=== PATIENT | female | born 1990 | race Caucasian/White ===

== ENCOUNTER 2019-01-26 23:15 | Emergency (ER) | payer OTHER ==
[2019-01-26] MEDS ORDERED: SULFAMETHOXAZOLE/TRIMETHOPRIM 800MG/160MG D.S. TABLET PO ONE (23:46)
[2019-01-26 23:48] VITALS: BP 108/78; PULSE 110; TEMP 97.5; BMI 27.4
--- NOTE | 2019-01-26 23:48 | PDOC ---
History of Present Illness - General Chief Complaint: Abscess Boil Stated Complaint: PILONIDAL CYST Time Seen by Provider: 01/26/19 23:43 History Source: Patient Exam Limitations: No Limitations - History of Present Illness Initial Comments: 01/26/19 23:44 This is a 28-year-old female who comes in complaining of a pilonidal cyst. Patient has history of similar cyst 10 years ago. Patient is complaining that there is some pain in the area however there is been no drainage from the area. Patient denies any fevers or chills or any other complaints. Allergies: as per nursing notes Past Medical History: none Social history: Lives with family. No smoking. No alcohol. No illicit drugs. Surgical history: None General: No fevers or chills, no weakness, no weight loss HEENT: No change in vision. No sore throat,. No ear pain CardioVascular: no chest discomfort. No shortness of breath Respiratory:No cough, or wheezing. Gastrointestinal: no nausea, vomiting, diarrhea or constipation, No rectal bleeding Genitourinary: No dysuria, hematuria, or frequency Musculoskeletal: No joint or muscle pain or swelling Neurologic: No headache, vertigo, dizziness or loss of consciousness Psychiatric: nor depression Skin: No rashes or easy bruising, pilonidal cyst as per HPI Endocrine: no increased thirst or abnormal weight change Allergic: no skin or latex allergy All other systems reviewed and normal GENERAL: The patient is awake, alert, and fully oriented, in no acute distress. HEAD: Normal with no signs of trauma. EYES: Pupils equal, round and reactive to light, extraocular movements intact, sclera anicteric, conjunctiva clear. EXTREMITIES:atraumatic, Normal range of motion, no edema. Buttocks: There is no palpable collection however there is an area of some mild erythema with slight increase in warmth. There is some associated tenderness on palpation NEUROLOGICAL: Normal speech, normal gait. PSYCH: Normal mood, normal affect. SKIN: Warm, Dry, normal turgor, no rashes or lesions noted. Assessment and plan: This is 28-year-old female who comes in complaining of pain in an area of the pilonidal cyst. On my exam there is no palpable collection that would be drainable at this time. Discussed with patient her options recommended that patient start hot soaks to the area 3 times a day and I will start her on antibiotics in hopes that we can prevent formation of an abscess. Past History - Past Medical History Allergies/Adverse Reactions: Allergies Allergy/AdvReac Type Severity Reaction Status Date / Time No Known Allergies Allergy Verified 01/26/19 23:43 Home Medications: Ambulatory Orders Norgestimate-Ethinyl Estradiol [Ortho Tri-Cyclen] 1 each PO DAILY 08/13/15 Sulfamethoxazole/Trimethoprim [Bactrim DS -] 1 tab PO BID #14 tablet 01/26/19 - Psycho Social/Smoking Cessation Hx Smoking History: Never smoked Have you smoked in the past 12 months: No Hx Alcohol Use: No Drug/Substance Use Hx: No Substance Use Type: None Discharge - Discharge Information Problems reviewed: Yes Clinical Impression/Diagnosis: Pilonidal cyst without abscess Condition: Good Disposition: HOME - Admission No - Follow up/Referral - Patient Discharge Instructions Additional Instructions: Do hot soaks to the area as discussed by the doctor. Take Bactrim 1 tablet twice a day for 7 days. Hopefully this will prevent formation of an abscess that will need to be drained. However at this point there is no drainable abscess. Return to the emergency department immediately with ANY new, persistent or worsening symptoms. Continue any medications as previously prescribed by your physician. You should follow up with your primary doctor as soon as possible regarding today's emergency department visit. . Please make sure your doctor reviews the results of your emergency evaluation. Thank you for coming to the Emergency Department today for your care. It was a pleasure to see you today. Please note that your evaluation is INCOMPLETE until you follow-up with your doctor. - Post Discharge Activity
[2019-01-26] MEDS ORDERED: SULFAMETHOXAZOLE/TRIMETHOPRIM 800MG/160MG D.S. TABLET ONE (23:49)
== END 2019-01-26 23:54 | disposition home or self-care (01) ==
LOC: FER 23:15
DX: L05.91 Pilonidal cyst without abscess (principal)
CPT/HCPCS: 99281-25

== ENCOUNTER 2019-01-31 19:26 | Emergency (ER) | payer OTHER ==
[2019-01-31 19:32] VITALS: BP 113/73; PULSE 75; TEMP 97.9; BMI 28.3
--- NOTE | 2019-01-31 21:16 | PDOC ---
Documentation entered by Brittany Guardado SCRIBE, acting as scribe for Charlotte Estes MD. Charlotte Estes MD: This documentation has been prepared by the Geo ward Maria, SCRIBE, under my direction and personally reviewed by me in its entirety. I confirm that the documentation accurately reflects all work, treatment, procedures, and medical decision making performed by me. History of Present Illness - General Chief Complaint: Pain, Acute Stated Complaint: CYST ON TAILBONE Time Seen by Provider: 01/31/19 19:29 History Source: Patient Exam Limitations: No Limitations - History of Present Illness Initial Comments: 01/31/19 20:29 Patient is a 28 year old female with no significant past medical history who presents to the ED complaining of increased swelling and pain of cyst on her tailbone.. Patient was seen here in the ER on January 26 with painful swelling in the area. Abscess was not yet ready for drainage and patient was started on Bactrim course (she is on last day of the antibiotic course). Patient also continue to warm pack the area. Since then, there is been increase in swelling and pain but no drainage from the abscess. Patient is previous history of pilonidal abscess, drained approximately 10 years ago. No interim swelling has occurred in the area. No history of resistant organism colonization or infection; no history of poor wound healing Denies fever, chills, nausea, vomiting, diarrhea and constipation. Allergies: NKA Past surgical history: None reported. Social history: Nonsmoker. Denies EtOH use and recreational drug use. Past History - Past Medical History Allergies/Adverse Reactions: Allergies Allergy/AdvReac Type Severity Reaction Status Date / Time No Known Allergies Allergy Verified 01/31/19 19:27 Home Medications: Ambulatory Orders Sulfamethoxazole/Trimethoprim [Bactrim DS -] 1 tab PO BID #14 tablet 01/26/19 Sulfamethoxazole/Trimethoprim [Bactrim Ds -] 1 tab PO BID #10 tablet 01/31/19 COPD: No - Psycho Social/Smoking Cessation Hx Smoking History: Never smoked Have you smoked in the past 12 months: No Information on smoking cessation initiated: No Hx Alcohol Use: No Drug/Substance Use Hx: No Substance Use Type: None Review of Systems - Review of Systems Able to Perform ROS?: Yes Comments:: 01/31/19 20:30 GENERAL/CONSTITUTIONAL: No fever or chills. No weakness. HEAD, EYES, EARS, NOSE AND THROAT: No change in vision. No ear pain or discharge. No sore throat. CARDIOVASCULAR: No chest pain or shortness of breath. RESPIRATORY: No cough, wheezing, or hemoptysis. GASTROINTESTINAL: No nausea, vomiting, diarrhea or constipation. GENITOURINARY: No dysuria, frequency, or change in urination. MUSCULOSKELETAL: No joint or muscle swelling or pain. No neck or back pain. SKIN:+ cyst on tailbone. No rash NEUROLOGIC: No headache, vertigo, loss of consciousness, or change in strength/ sensation. ENDOCRINE: No increased thirst. No abnormal weight change. HEMATOLOGIC/LYMPHATIC: No anemia, easy bleeding, or history of blood clots. ALLERGIC/IMMUNOLOGIC: No hives or skin allergy. *Physical Exam - Vital Signs Last Vital Signs Temp Pulse Resp BP Pulse Ox 97.9 F 75 16 113/73 100 01/31/19 19:29 01/31/19 19:29 01/31/19 19:29 01/31/19 19:29 01/31/19 19:29 - Physical Exam 01/31/19 20:30 ADULT EXAM GENERAL: Awake, alert, and fully oriented, in no acute distress HEAD: No signs of trauma EYES: PERRLA, EOMI, sclera anicteric, conjunctiva clear ENT: Auricles normal inspection, hearing grossly normal, nares patent, oropharynx clear without exudates. Moist mucosa NECK: Normal ROM, supple, no lymphadenopathy, JVD, or masses LUNGS: Breath sounds equal, clear to auscultation bilaterally. No wheezes, and no crackles HEART: Regular rate and rhythm, normal S1 and S2, no murmurs, rubs or gallops ABDOMEN: Soft, nontender, normoactive bowel sounds. No guarding, no rebound. No masses EXTREMITIES: Normal range of motion, no edema. No clubbing or cyanosis. No cords, erythema, or tenderness NEUROLOGICAL: Cranial nerves II through XII grossly intact. Normal speech, normal gait SKIN:+ 2.5cm x 1cm tender erythematous area of right superior gluteal cleft surrounded by 2cm erythematous border. No drainage noted. arm, Dry, normal turgor, no rashes. Procedures - Incision and Drainage I&D Site: Right: Buttock (Pilonidal) Betadine cleansed: No (Hibiclens/ethanol) Anesthesia: 1% Lidocaine Volume(ml): 2 Blade Size: 11 Attempts: 1 Iodinated Packin/2 in Complications: none Dressing: Yes (Sterile gauze) Progress: Area around right-sided pilonidal abscess cleansed using Hibiclens/ethanol solution and draped. 2 mL of 1% lidocaine infiltrated locally for anesthesia. 1.5 cm linear incision made with #11 blade. Copious amount of purulent drainage obtained with expression of all areas for full drainage. Sample sent for culture and sensitivity. Abscess cavity irrigated with 40 mL of sterile normal saline. Cavity was packed with half-inch plain packing. Dry sterile dressing placed on the wound. Patient tolerated procedure well Medical Decision Making - Medical Decision Making As noted above, this 28-year-old woman with one previous episode of pilonidal abscess presented last week here with early abscess formation in the same area. Since the first ER visit, erythema/edema/pain has increased but abscess has not drained. Exam as noted with mild fluctuance felt around the abscess area and erythema extending to left side of pilonidal area. Incision and drainage procedure performed as noted above. Wound culture and sensitivity pending. Meanwhile, patient will be continued on Bactrim DS twice a day as previously. Patient will keep the area dry for 24 hours then remove remove the packing and bathe/shower with water hitting the area of the wound. She will be called if culture and sensitivity resistance to Bactrim. Since she has never seen general surgeon regarding her pilonidal abscess (prior incision and drainage was just prior to her leaving for college), she should follow-up with Dr. Albright of the general surgery staff regarding risks and benefits of pilonidal cyst excision. She should return to the ER if she has worsening pain/ edema in the area. Otherwise, she should continue Bactrim for 5 more days ( prescription sent to her pharmacy) Discharge - Discharge Information Problems reviewed: Yes Clinical Impression/Diagnosis: Pilonidal abscess Condition: Stable Disposition: HOME - Additional Discharge Information Prescriptions: Sulfamethoxazole/Trimethoprim [Bactrim Ds -] 1 tab PO BID #10 tablet - Follow up/Referral Referrals: Roberto Albright MD [Staff Physician] - - Patient Discharge Instructions Patient Printed Discharge Instructions: Pilonidal Cyst Additional Instructions: Keep dressing in place for 24 hours, as dry as possible Remove packing in 24 hours and allow water to enter wound while showering Can use protective dressing for a few days after removal of packing Continue Bactrim DS twice a day for the next 5 days Return to ER if you have increasing pain, swelling or drainage or you develop fever Follow-up with general surgeon (Dr. Albright) within the next week Follow-up with general medical doctor within the next 10 days to 2 weeks - Post Discharge Activity
== END 2019-01-31 20:51 | disposition home or self-care (01) ==
LOC: FER 19:26
PROC: 0H98XZZ Drainage of Buttock Skin, External Approach (ICD-10-PCS; principal; 2019-01-31)
DX: L05.91 Pilonidal cyst without abscess (principal)
CPT/HCPCS: 87070; 87076; 87077; 87205; 99281-25